=== PATIENT | female | born 2000 | race Caucasian/White ===

== ENCOUNTER → 2020-05-01 | Outpatient (CLI) | payer SELFPAY ==
--- NOTE | 2020-05-01 15:22 | RADIOLOGY REPORT (SQ) ---
EXAM DESCRIPTION: U/S OB 14+ TRNABD 1GES W/O DOP IMAGES COMPLETED DATE/TIME: 05/01/2020 1:48 pm REASON FOR STUDY: ENCOUNTER FOR SCREENING OF NORMAL FIRST , SECOND SEMESTER Z34.02 ENCNTR FOR SUPRVSN OF NORMAL FIRST PREG, SECOND TRIME COMPARISON: None. TECHNIQUE: Static and Dynamic grayscale imaging performed of gravid uterus using transabdominal appr oach. Additional selected color Doppler and spectral images recorded. All stored on PACS. LIMITATIONS: None. FINDINGS: FETUSES SEEN:1 EGA: 15 weeks 6 days Calculated using BPD,FL,HC,AC documented on images. No discrepancy with clinica l dates. LANA: 10/17/2020 EFW: 137 grams PERCENTILE: Not applicable. Fetus less than or equal to 20 weeks gestation. SULLY: Adequate PLACENTA: Anterior grade 1 PRESENTATION: Variable ANATOMY: HEART RATE: 144 beats per minute. FOUR CHAMBER HEART: Not confirmed. THREE VESSEL CORD: Yes. CORD INSERTION: Visualized. KIDNEYS AND BLADDER: Kidneys not seen. Bladder is normal. STOMACH: Visualized. Appears normal. SPINE: Poorly seen. BRAIN AND LATERAL VENTRICLES: Poorly seen. OTHER: No other significant finding. MATERNAL ADNEXA: Right ovary is normal. Left ovary is not seen. CERVICAL LENGTH: 5 cm. Closed. OTHER: No other significant finding. IMPRESSION: LIVING INTRAUTERINE . ESTIMATED GESTATIONAL AGE 15 weeks 6 days No anomalies were seen. Some anatomical features were not able to be well seen because of the early gestational age. Trimester of : Second trimester - 13 weeks 1 day to 27 weeks 6 days. TECHNICAL DOCUMENTATION: JOB ID: [id number] 2010 [employer]- All Rights Reserved Reading location - IP/workstation name: [email or web address]
== END ==
LOC: RAD 13:01
PROVIDERS: ATTEND Midwife
DX: Z34.02 Encounter for supervision of normal first pregnancy, second trimester (principal); Z3A.15 15 weeks gestation of pregnancy
CPT/HCPCS: 76805